=== PATIENT | female | born 1955 | race Caucasian/White ===

== ENCOUNTER 2016-11-15 10:43 | Day surgery (SDC) | payer BC ==
[2016-11-15] MEDS ORDERED: Lactated Ringers 1,000 ML IV SCH (11:00)
[2016-11-15] MEDS ORDERED: Sodium Chloride 0.9% 10 ML Syringe FLUSH PRN (11:00)
[2016-11-15] MEDS ORDERED: fentaNYL 100 MCG/2 ML SDV ONE ×2 (12:40→12:45)
[2016-11-15] MEDS ORDERED: Propofol 200 MG/20 ML SDV ONE ×2 (12:40→12:45)
[2016-11-15] MEDS ORDERED: Midazolam 1 MG/ML 2 ML SDV ONE ×2 (12:40→12:45)
--- NOTE | 2016-11-15 12:51 | PCM.PN ---
- General Info Date of Service: 11/15/16 - Review of Systems Systems Review Comment:: This 61-year-old female is referred today for her initial screening colonoscopy. She denies any recent change in bowel habits. She also denies any family history of colon cancer. She is medically stable today to proceed. There is been no significant change in her health status since her recent exam. I discussed the proposed colonoscopy with the patient. Risks such as but not limited to bleeding and GI injury or discussed. She appears to understand and agrees to proceed. - Patient Data Vitals - most recent: Last Vital Signs Temp 98.1 F 11/15/16 11:38 Pulse 65 11/15/16 11:38 Resp 20 11/15/16 11:38 BP 134/74 11/15/16 11:38 Pulse Ox 95 11/15/16 11:38 Weight - most recent: 102.058 kg Med Orders - Current: Current Medications Lactated Ringer's (Ringers, Lactated) 1,000 mls @ 125 mls/hr IV ASDIRECTED EDITH Last Admin: 11/15/16 11:48 Dose: 125 mls/hr Sodium Chloride (Saline Flush) 10 ml FLUSH ASDIRECTED PRN PRN Reason: Keep Vein Open Discontinued Medications Fentanyl (Sublimaze) Confirm Administered Dose 100 mcg .ROUTE .STK-MED ONE Stop: 11/15/16 12:41 Midazolam HCl (Versed 1 Mg/Ml) Confirm Administered Dose 2 mg .ROUTE .STK-MED ONE Stop: 11/15/16 12:41 Propofol (Diprivan 20 Ml) Confirm Administered Dose 200 mg .ROUTE .STK-MED ONE Stop: 11/15/16 12:41 - Problem List Review Problem List Initiated/Reviewed/Updated: Yes - My Orders Last 24 Hours: My Active Orders 11/15/16 11:00 Patient Status [ADT] Routine Peripheral IV Care [RC] . DIRECTED Verify Patient Consent Obtain [RC] ASDIRECTED Lactated Ringers [Ringers, Lactated] 1,000 ml IV ASDIRECTED Sodium Chloride 0.9% [Saline Flush] 10 ml FLUSH ASDIRECTED PRN Peripheral IV Insertion Adult [OM.PC] Routine - Assessment Assessment:: Colon cancer screening - Plan Plan:: Colonoscopy
--- NOTE | 2016-11-15 13:26 | PCM.OPNOTE ---
- General Post-Op/Procedure Note Date of Surgery/Procedure: 11/15/16 Operative Procedure(s): Colonoscopy Findings: Normal-appearing colon Pre Op Diagnosis: Colon cancer screening Post-Op Diagnosis: Normal colon Anesthesia Technique: MAC Primary Surgeon: Sean Lofton Pathology: none Output, Urine Amount: 0 EBL in mLs: 0 Complications: None Condition: Good Free Text/Narrative:: Intake & Output 11/14/16 11/15/16 11/15/16 22:59 06:59 14:59 Intake Total 700 Balance 700
--- NOTE | 2016-11-15 17:06 | OR ---
Date of Procedure: 11/15/2016 PREOPERATIVE DIAGNOSIS: Colon cancer screening. POSTOPERATIVE DIAGNOSIS: Normal colon. OPERATION PERFORMED: Colonoscopy. INDICATIONS FOR SURGERY: This 61-year-old female is referred for her initial screening colonoscopy. She denies any recent change in bowel habits or family history of colon cancer. FINDINGS: The patient's colon appears normal. No polyps or other abnormalities are seen. PROCEDURE: The patient was taken to the operating room. She was given intravenous sedation, and with her in the left lateral decubitus position, digital rectal exam was performed showing no rectal masses. The Olympus colonoscope was inserted into the rectum. Retroflexed examination of the rectal canal was performed. The scope was then carefully advanced under direct visualization through the entire length of the colon until the cecum was reached. Cecal acquisition was confirmed by noting the normal internal cecal anatomy. The ileocecal valve and appendiceal orifice were reviewed. The light was also noted to transilluminate the abdominal wall in the right lower quadrant. After examining the cecum, the scope was slowly withdrawn sequentially re-examining the colonic segments until the entire colon and rectum had been fully examined. The scope was then removed and the patient was taken from the operating room in satisfactory condition. ESTIMATED BLOOD LOSS: Zero. COMPLICATIONS: None. PROGNOSIS: Good. RAYMOND Lofton MD /[id number]
[2016-11-15 18:38] VITALS: BP 101/69
== END 2016-11-15 14:21 | disposition home or self-care (01) ==
LOC: LL.SDS 10:43
PROVIDERS: ATTEND Surgery
DX: Z12.11 Encounter for screening for malignant neoplasm of colon (principal); F41.9 Anxiety disorder, unspecified; Z79.899 Other long term (current) drug therapy
CPT/HCPCS: 45378; J7120; J2250; J2704; J3010

== ENCOUNTER 2022-11-26 13:52 | Emergency (ER) | payer MEDICARE, BC ==
[2022-11-26] MEDS ORDERED: Sodium Chloride 0.9% 10 ML Syringe FLUSH PRN (14:04)
[2022-11-26] MEDS ORDERED: Ondansetron 4 MG/2 ML SDV IVPUSH ONE (14:04)
[2022-11-26] MEDS ORDERED: Morphine 2 MG/ML SYRINGE IVPUSH ONE ×2 (14:05→14:29)
[2022-11-26 14:41] LABS: BASOPHILS ABSOLUTE AUTO 0.01 K/uL (0.00-0.20); BASOPHILS PERCENT AUTO 0.2 % (0.0-2.0); EOSINOPHILS ABSOLUTE AUTO 0.21 K/uL (0.00-0.50); EOSINOPHILS PERCENT AUTO 3.4 % (0.0-5.0); HEMATOCRIT 38.7 % (34.0-46.0); HEMOGLOBIN 12.8 g/dL (11.7-15.5); LYMPHOCYTES ABSOLUTE AUTO 1.76 K/uL (0.50-3.50); LYMPHOCYTES PERCENT AUTO 28.3 % (10.0-50.0); MEAN CORPUSCULAR HEMOGLOBIN 30.9 pg (28.2-33.3); MEAN CORPUSCULAR HGB CONC 33.1 g/dL (31.7-36.0); MEAN CORPUSCULAR VOLUME 93.5 fL (84.0-98.0); MONOCYTES ABSOLUTE AUTO 0.37 K/uL (0.00-1.00); MONOCYTES PERCENT AUTO 5.9 % (2.0-14.0); NEUTROPHILS ABSOLUTE AUTO 3.87 K/uL (1.40-7.00); NEUTROPHILS PERCENT AUTO 62.2 % (45.0-80.0); PLATELET COUNT,PLT 240 K/uL (150-350); RED BLOOD CELL COUNT 4.14 M/uL (3.77-5.09); RED CELL DISTRIBUTION WIDTH 12.8 % (11.2-14.1); WHITE BLOOD CELL COUNT,WBC 6.2 K/uL (4.0-10.2)
[2022-11-26] MEDS ORDERED: HYDROmorphone 0.5 MG/0.5 ML Syringe IVPUSH ONE (14:49)
[2022-11-26 15:05] LABS: ALANINE AMINOTRANSFERASE,ALT 26 U/L (12-78); ALBUMIN 3.6 g/dL (3.4-5.0); ALKALINE PHOSPHATASE 78 IU/L (46-116); ANION GAP 5.7 meq/L (7-15); ASPARTATE AMNIOTRANSFERASE,AST 29 U/L (15-37); BILIRUBIN TOTAL 0.4 mg/dL (0.2-1.0); BLOOD UREA NITROGEN,BUN 18 mg/dL (7-18); CARBON DIOXIDE,CO2 29.3 mmol/L (21.0-32.0); CHLORIDE,CL 104 mmol/L (98-107); CREATININE 0.89 mg/dL (0.51-1.17); GLUCOSE RANDOM 133 mg/dL (70-99); MAGNESIUM 2.2 mg/dL (1.8-2.4); POTASSIUM,K 3.7 mmol/L (3.5-5.1); PROTEIN TOTAL,TP 6.5 g/dL (6.4-8.2); SODIUM,NA 139 mmol/L (136-145)
[2022-11-26 15:07] LABS: ESTIMATED GFR 72 mL/min (>=60)
[2022-11-26] MEDS ORDERED: fentaNYL 100 MCG/2 ML SDV IVPUSH ONE (15:33)
[2022-11-26] MEDS ORDERED: Midazolam 1 MG/ML 2 ML SDV IVPUSH ONE ×2 (15:33→16:07)
[2022-11-26] MEDS ORDERED: Take Home: traMADol 50 MG, 4 Tab Pack PO ONE (17:39)
[2022-11-26 19:59] VITALS: PULSE 68
[2022-11-26 20:00] VITALS: BP 130/79
== END 2022-11-26 19:20 | disposition home or self-care (01) ==
LOC: LL.ED 13:52
DX: S43.014A Anterior dislocation of right humerus, initial encounter (principal); E66.9 Obesity, unspecified; Z68.30 Body mass index [BMI] 30.0-30.9, adult; W01.0XXA Fall on same level from slipping, tripping and stumbling without subsequent striking against object, initial encounter; Y92.009 Unspecified place in unspecified non-institutional (private) residence as the place of occurrence of the external cause
CPT/HCPCS: 23650; 36415; 73020-RT; 73060-RT; 80053; 83735; 85025; 96374; 96375; 99284-25; J1170; J2250; J2270; J2405; J3010

== ENCOUNTER 2023-08-18 19:22 | Emergency (ER) | payer BC, MEDICARE, OTHER ==
[2023-08-18 19:38] VITALS: BP 147/81; PULSE 92
[2023-08-18] MEDS ORDERED: Ketorolac 30 MG/ML SDV IM ONE (20:10)
[2023-08-18] MEDS ORDERED: Orphenadrine 60 MG/2 ML Inj IM ONE (20:10)
[2023-08-18] MEDS ORDERED: Take Home: Cyclobenzaprine 10 MG Tab, 4 Tab Pack PO ONE (20:13)
== END 2023-08-18 20:50 | disposition home or self-care (01) ==
LOC: LL.ED 19:22
DX: S30.0XXA Contusion of lower back and pelvis, initial encounter (principal); Z79.899 Other long term (current) drug therapy; W00.9XXA Unspecified fall due to ice and snow, initial encounter
CPT/HCPCS: 71101-RT; 96372; 99283; 99284; A9270-GY; J1885; J2360